=== PATIENT | female | born 1960 | race Caucasian/White ===

== ENCOUNTER → 2023-08-17 07:54 | Outpatient (REF) | payer MEDICARE, OTHER, SELFPAY ==
[2023-08-17 09:19] LABS: ALT (SGPT) 19 U/L (0-35); AST (SGOT) 29 U/L (14-36); Albumin 4.5 g/dl (3.5-5.0); Alkaline Phosphatase 95 U/L (38-126); Blood Urea Nitrogen 8 mg/dl (7-17); Calcium 9.2 mg/dl (8.4-10.2); Carbon Dioxide 19 mmol/L (22-30); Chloride 98 mmol/L (98-107); Glucose 118 mg/dl (70-99); HDL Cholesterol 58 mg/dl; LDL Cholesterol, Calculated 66 mg/dl; Potassium 4.2 mmol/L (3.5-5.1); Sodium 125 mmol/L (135-145); Total Bilirubin 0.5 mg/dl (0.2-1.3); Total Cholesterol 153 mg/dl (50-199); Total Protein 7.1 g/dl (6.3-8.2); Triglyceride 149 mg/dl (10-149); Very Low Density Lipoprotein 29 mg/dl (0-30); eGFR > 60.00
[2023-08-17 09:21] LABS: C-Reactive Protein < 5.00 mg/L (0.0-10.00)
[2023-08-17 09:55] LABS: Estradiol 28.2 pg/ml; Testosterone, Total 14.2 ng/dl
[2023-08-17 10:26] LABS: FSH 28.3 mIU/ml
[2023-08-18 21:46] LABS: DHEA Sulfate 3 ug/dL (19-205)
[2023-08-19 06:07] LABS: Quantiferon Mitogen minus NIL 4.78 IU/mL; Quantiferon NIL 0.03 IU/mL; Quantiferon TB Gold Plus Negative (Negative)
== END ==
LOC: REG 07:54
PROVIDERS: ATTENDING PHYSICIAN Internal Medicine Rheumatology; FAMILY PHYSICIAN Family Medicine; REFERRING PHYSICIAN Internal Medicine Endocrinology, Diabetes & Metabolism
DX: E11.59 Type 2 diabetes mellitus with other circulatory complications (principal); E78.2 Mixed hyperlipidemia; M81.0 Age-related osteoporosis without current pathological fracture; L68.0 Hirsutism; D83.9 Common variable immunodeficiency, unspecified; D84.9 Immunodeficiency, unspecified; L40.0 Psoriasis vulgaris; L40.50 Arthropathic psoriasis, unspecified
CPT/HCPCS: 36415; 80053; 80061; 82627; 82670; 83001; 83002; 84403; 86140; 86480

== ENCOUNTER → 2023-08-24 07:41 | Outpatient (REF) | payer MEDICARE, OTHER, SELFPAY ==
[2023-08-24 08:56] LABS: % Basophils 0.4 % (0-2); % Eosinophils 0.9 % (0-6); % Immature Granulocytes 0.2 % (0-0.5); % Lymphocytes 29.8 % (20.5-51.1); % Monocytes 11.1 % (1.7-9.3); % Neutrophils 57.6 % (42.2-75.2); Absolute Lymphocytes 1.4 10^3/uL (1.2-3.4); Absolute Monocytes 0.5 10^3/uL (0.1-0.6); Absolute Neutrophils 2.7 10^3/uL (1.4-6.5); Hematocrit 35.2 % (37.0-47.0); Hemoglobin 12.1 g/dL (12.0-16.0); Mean Corp Hgb Conc. 34.4 g/dL (33.0-37.0); Mean Corpuscular Hgb 32.4 pg (27.0-31.0); Mean Corpuscular Volume 94.1 fL (81.0-99.0); Mean Platelet Volume 9.4 fL (7.4-10.4); Nucleated Red Blood Cells % 0 %; Platelet Count 181 10^3/uL (130-400); Red Blood Cell Count 3.74 10^6/uL (4.20-5.40); Red Cell Dist. Width 11.9 % (11.5-14.5); White Blood Cell Count 4.7 10^3/uL (4.8-10.8)
[2023-08-24 10:07] LABS: Erythrocyte Sed Rate 23 mm/hour (0-20)
== END ==
LOC: REG 07:41
PROVIDERS: ATTENDING PHYSICIAN Internal Medicine Rheumatology; FAMILY PHYSICIAN Family Medicine
DX: D83.9 Common variable immunodeficiency, unspecified (principal); D84.9 Immunodeficiency, unspecified; L40.0 Psoriasis vulgaris; L40.50 Arthropathic psoriasis, unspecified; M81.0 Age-related osteoporosis without current pathological fracture
CPT/HCPCS: 36415; 85025; 85652

== ENCOUNTER → 2023-11-30 08:22 | Outpatient (REF) | payer MEDICARE, OTHER, SELFPAY ==
[2023-11-30 10:13] LABS: ALT (SGPT) 20 U/L (0-35); AST (SGOT) 35 U/L (14-36); Albumin 3.9 g/dl (3.5-5.0); Alkaline Phosphatase 81 U/L (38-126); Blood Urea Nitrogen 7 mg/dl (7-17); Calcium 8.9 mg/dl (8.4-10.2); Carbon Dioxide 23 mmol/L (22-30); Chloride 95 mmol/L (98-107); Glucose 116 mg/dl (70-99); Potassium 4.3 mmol/L (3.5-5.1); Sodium 127 mmol/L (135-145); Total Bilirubin 0.5 mg/dl (0.2-1.3); Total Protein 6.5 g/dl (6.3-8.2); eGFR > 60.00
[2023-11-30 10:14] LABS: Vitamin D, 25-OH*** 92.4 ng/mL (30-80)
[2023-11-30 10:47] LABS: Vitamin B12 266 pg/ml (239-931)
[2023-11-30 10:53] LABS: Glycohemoglobin (HgbA1c) 5.8 % (4.0-5.6)
== END ==
LOC: REG 08:22
PROVIDERS: ATTENDING PHYSICIAN Specialist; FAMILY PHYSICIAN Family Medicine; REFERRING PHYSICIAN Dermatology
DX: Z79.899 Other long term (current) drug therapy (principal); E11.59 Type 2 diabetes mellitus with other circulatory complications; E55.9 Vitamin D deficiency, unspecified; Z98.84 Bariatric surgery status; E87.1 Hypo-osmolality and hyponatremia
CPT/HCPCS: 36415; 80053; 82306; 82607; 83036

== ENCOUNTER 2024-02-03 06:40 | Day surgery (SDC) | payer MEDICARE, OTHER, SELFPAY ==
[2024-02-03] VITALS (8 sets, daily range): BP systolic 190–253; BP diastolic 91–123; BMI 33.0
[2024-02-03 08:02] LABS: Glucose - Point of Care 115 mg/dl (70-99)
== END 2024-02-03 10:25 | disposition home or self-care (01) ==
LOC: SDS 06:40
PROVIDERS: ATTENDING PHYSICIAN Internal Medicine Gastroenterology
DX: Z09 Encounter for follow-up examination after completed treatment for conditions other than malignant neoplasm (principal); Z86.010 Personal history of colon polyps; K57.30 Diverticulosis of large intestine without perforation or abscess without bleeding; K64.9 Unspecified hemorrhoids
CPT/HCPCS: 45378; 82962

== ENCOUNTER → 2024-02-22 07:55 | Outpatient (REF) | payer MEDICARE, OTHER, SELFPAY ==
[2024-02-22 08:40] LABS: % Eosinophils 1.2 % (0-6); % Immature Granulocytes 0.2 % (0-0.5); % Monocytes 9.7 % (1.7-9.3); % Neutrophils 53.9 % (42.2-75.2); Absolute Eosinophils 0.1 10^3/uL (0-0.7); Absolute Lymphocytes 1.4 10^3/uL (1.2-3.4); Absolute Monocytes 0.4 10^3/uL (0.1-0.6); Absolute Neutrophils 2.2 10^3/uL (1.4-6.5); Hematocrit 35.9 % (37.0-47.0); Hemoglobin 12.1 g/dL (12.0-16.0); Mean Corp Hgb Conc. 33.7 g/dL (33.0-37.0); Mean Corpuscular Hgb 31.4 pg (27.0-31.0); Mean Corpuscular Volume 93.2 fL (81.0-99.0); Mean Platelet Volume 9.7 fL (7.4-10.4); Nucleated Red Blood Cells % 0 %; Platelet Count 209 10^3/uL (130-400); Red Blood Cell Count 3.85 10^6/uL (4.20-5.40)
[2024-02-22 09:10] LABS: ALT (SGPT) 16 U/L (0-35); AST (SGOT) 25 U/L (14-36); Albumin 4.1 g/dl (3.5-5.0); Alkaline Phosphatase 102 U/L (38-126); Blood Urea Nitrogen 10 mg/dl (7-17); Calcium 9.2 mg/dl (8.4-10.2); Carbon Dioxide 28 mmol/L (22-30); Chloride 94 mmol/L (98-107); Glucose 113 mg/dl (70-99); Potassium 3.8 mmol/L (3.5-5.1); Sodium 136 mmol/L (135-145); Total Bilirubin 0.3 mg/dl (0.2-1.3); eGFR > 60.00
[2024-02-22 09:13] LABS: C-Reactive Protein < 5.00 mg/L (0.0-10.00)
[2024-02-22 10:29] LABS: Erythrocyte Sed Rate 42 mm/hour (0-20)
== END ==
LOC: REG 07:55
PROVIDERS: ATTENDING PHYSICIAN Internal Medicine Rheumatology; FAMILY PHYSICIAN Family Medicine
DX: L40.0 Psoriasis vulgaris (principal); L40.50 Arthropathic psoriasis, unspecified; M81.0 Age-related osteoporosis without current pathological fracture
CPT/HCPCS: 36415; 80053; 85025; 85652; 86140

== ENCOUNTER → 2024-03-18 14:03 | Outpatient (REF) | payer MEDICARE, OTHER, SELFPAY | LOC: CLAB 14:03 | PROVIDERS: ATTENDING PHYSICIAN Family Medicine | DX: J02.9 Acute pharyngitis, unspecified (principal) | CPT/HCPCS: 87070 ==

== ENCOUNTER → 2024-03-28 10:32 | Outpatient (REF) | payer MEDICARE, OTHER, SELFPAY | LOC: REG 10:32 | PROVIDERS: ATTENDING PHYSICIAN Family Medicine | DX: R05.8 Other specified cough (principal); Z20.89 Contact with and (suspected) exposure to other communicable diseases | CPT/HCPCS: 71046 ==

== ENCOUNTER 2024-04-12 19:31 | Emergency (ER) | payer MEDICARE, OTHER, SELFPAY ==
--- NOTE | 2024-04-12 19:36 | ED.GENMED ---
History of Present Illness
General
Chief Complaint: Breathing Problem
Source: ambulance crew
Exam Limitations: clinical condition
Time Seen by Provider: 04/12/24 19:34
History of Present Illness
History of Present Illness:
See MDM
Past History
Past History
ED Past Medical History: Asthma, CAD, HTN, IDDM, Other (chronic back pain) and Other (Migraines, Sinus problems)
ED Past Surgical History: Cardiac (Cardiac stents), Cholecystectomy and Other (Back surg X5, Rey knee surg, Toe surg, Bariatric surg, Lipoma removed)
Social History
Tobacco: Non-smoker
Alcohol: None
Drug: None
Personal: Single
Living: with family
Employment: Disabled
Phy Exam
Physical Exam
Physical Exam:
See MDM
Scores
Heart Failure Risk
Heart Failure Risk Score: Not Applicable
Course
Orders/Labs/Results
Orders:
Orders
04/12/24 19:34
CT Head W/o Iv Contrast Urgent
Comment:
Reason For Exam: altered and obtunded
04/12/24 19:35
Electrocardiogram (*1) Urgent
Reason for Study: Shortness of Breath
EKG- Treatment ONCE
04/12/24 19:36
CR Chest Portable - 1 View Urgent
Comment:
Reason For Exam: intubated
Reason Study Needs to be Portable: Patient Unstable
04/12/24 19:40
Acetaminophen Urgent
Alcohol Urgent
COVID-19 Antigen Urgent
Source: Nasal Swab
Complete Blood Count/With Diff Urgent
Comprehensive Metabolic Panel Urgent
Lactic Acid Q4H
Comment: CANCEL 2nd LACTIC ACID IF 1st LACTIC ACID IS LESS THAN 2
NT-proBNP Urgent
PTT Urgent
Prothrombin Time Urgent
Salicylate Urgent
Troponin I Urgent
Blood Culture Q30M
KELLI Source: Blood/Venous
Specimen Description:
Blood Culture Q30M
KELLI Source: Blood/Venous
Specimen Description:
Influenza A+B Rapid Molecular Urgent
KELLI Source: Nasal Swab
Specimen Description:
Abnormal Lab Results
04/12/24
19:40
RBC 3.83 L 10^6/uL
(4.20-5.40)
MCH 31.6 H pg
(27.0-31.0)
MCHC 32.5 L g/dL
(33.0-37.0)
Sodium 134 L mmol/L
(135-145)
Potassium 3.2 L mmol/L
(3.5-5.1)
BUN 6 L mg/dl
(7-17)
Creatinine 0.5 L mg/dL
(0.6-1.0)
Glucose 223 H mg/dl
(70-99)
Lactic Acid 2.1 H mmol/L
(0.7-2.0)
Calcium 8.0 L mg/dl
(8.4-10.2)
AST 40 H U/L
(14-36)
Troponin I 0.047 H* ng/ml
Salicylates 1.2 L mg/dl
(2.0-20.0)
04/12/24 19:40
04/12/24 19:40
Vital Signs
Initial and Last Documented VS:
Initial Vital Signs
Pulse BP Pulse Ox
80 179/96 100
04/12/24 19:39 04/12/24 19:39 04/12/24 19:39
Last Documented Vital Signs
Pulse Resp BP Pulse Ox
0 0 177/86 97
04/12/24 21:15 04/12/24 21:15 04/12/24 20:45 04/12/24 20:45
MDM/Problems Addressed
Differential Diagnosis Includes:
HPI and MDM Narrative:
63-year-old female presenting by EMS for evaluation of respiratory arrest. Per medics, her sister found her on the ground. EMS were called and there was vomit on the floor around her. Patient was unresponsive in the intubated without requiring
sedation. Patient has still not required sedation after intubation. EMS stating there was some food products in the posterior pharynx. EMS stating that sister had indicated prior history of aspiration. EMS stating that patient never lost pulses
Patient was met by myself, nursing staff and respiratory. Patient was transitioned to the ventilator immediately. Patient is unresponsive. Will obtain chest x-ray and sent to CT scanner to rule out any evidence of intracranial hemorrhage
Physical exam
General: No evidence of trauma, no respiratory drive, nonverbal and not following commands. Not responding to painful stimuli
HEENT: Not protecting airway. Pupils dilated
Neck: appears supple
CV: No evidence of cyanosis. Tachycardic
Resp: No respiratory drive. Rhonchorous breath sounds to bagging. Patient intubated by EMS
Abd: Non-distended
Extremities: No deformities
Neuro: GCS 3
Psych: Flat affect
Skin: Cool
Problems Addressed including Acute and Chronic Conditions affecting care:
1. Respiratory arrest
Acuity: acute
Prognosis: unstable
Details: Patient intubated in the field. Will obtain chest x-ray
2. Altered mental status
Acuity: acute
Prognosis: unstable
Details: Will obtain CT head and basic blood work
3. [ ]
Acuity: acute
Prognosis: stable
Details:
4. [ ]
Acuity: acute
Prognosis: stable
Details:
5. [ ]
Acuity:
Prognosis:
Details:
Updates
7:55 PM respiratory indicating that there is concern for cuff leak and patient will require reintubation
As soon as patient obtain the CT scan, radiology called immediately indicating significant amount of hemorrhage. There is hemorrhage in the ventricles and brainstem
As soon as this happened, I discussed the case with both of her sisters and I discussed that it is a nonsurvivable bleed in my medical opinion. I confirmed this with neurosurgery on-call. I discussed with family that it is in the patient's best
interest to withdraw care
8:50 PM family at bedside and patient extubated
Time of called at 9:23 PM
10:03 PM Case discussed with medical lead Veronica Peters and patient released
Differential Diagnosis (but not limited to): Aspiration pneumonia, intracranial hemorrhage, intentional overdose
Testing considered: UDS
Drug therapy (if applicable): OTC meds, please see d/c instruction regarding Rx drugs
Amount and/or Complexity of Data Reviewed
Clinical info obtained from: EMS
External data reviewed: N/A
Labs I independently reviewed (but not limited to): [ ]
Radiology: X-ray independently reviewed: Chest x-ray shows possible right upper lobe pneumonia
The CT scan was personally and independently reviewed. In addition, official CT report reviewed.
Pulse Ox: not hypoxic
EKG independently reviewed: Normal sinus rhythm, ST depression anteriorly, no STEMI
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
Critical Care: N/A
Risk of Complication:
Social Determinants of health: Good social support
Discussed with other providers: N/A
Escalation of Care includes Admit/Obs:
Occasional wrong word or 'sound a like' substitutions may have occurred due to the inherent limitations of voice recognition software. Read the chart carefully and recognize, using context, where substitutions have occurred.
*Critical Care Note
Total Time (30-74mins, 75-104mins- exclusive of procedures): Not Applicable
ED Attending Note
-
Portions of this chart may have been created with voice recognition software.� Occasional wrong word or��sound alike� substitutions may have occurred due to the inherent limitations of voice recognition software.
Discharge Plan
Departure
Patient Disposition:
Date of Disposition: 04/12/24
Time of Disposition: 21:43
Discharge Problem:
Intracranial hemorrhage, Respiratory arrest
Prescriptions:
No Action
cetirizine [Zyrtec] 5 MG tablet
5 mg PO DAILY
leflunomide 20 MG tablet
20 mg PO DAILY
aripiprazole 10 MG tablet
10 mg PO HS
ezetimibe 10 MG tablet
10 mg PO DAILY
cholecalciferol (vitamin D3) 2,000 UNIT tablet
2,000 units PO DAILY
albuterol sulfate 1 PUFF HFA aerosol inhaler
2 puff inhalation R Q4HPRN PRN (Reason: sob)
isosorbide mononitrate 60 MG tablet extended release 24 hr
60 mg PO DAILY
potassium chloride 10 MEQ tablet,ER particles/crystals
10 meq PO BID
nitroglycerin 0.4 MG tablet, sublingual
0.4 mg sublingual [id number] PRN (Reason: chest pain) 0RF
Patient Comments:
last used couple months ago
furosemide 20 MG tablet
20 mg PO DAILY 0RF
metoprolol tartrate 25 MG tablet
25 mg PO BID 0RF
aspirin 81 MG tablet,chewable
81 mg PO DAILY Qty: 30 0RF
sucralfate 1 gram Tablet
1 g PO TID
Rx Instructions:
on empty stomach
sodium chloride 1 gram Tablet
1 g PO TID
prochlorperazine maleate 10 mg Tablet
10 mg PO .BIDW/ BRKFT, DINNER
tramadol 50 mg Tablet
100 mg PO .PRN,Q8H PRN (Reason: pain)
clonazepam 2 mg Tablet
2 mg PO QID
epinephrine [EpiPen] 0.3 mg/0.3 mL Auto-Injector
0.3 mg IM PRN PRN (Reason: bee sting)
aripiprazole 2 mg Tablet
4 mg PO DAILY
Skyrizi 150 mg/mL Pen Injector
150 mg SC Q84D
High Calcium 500 MG
500 mg PO BID
Ivig
IV Q4W
Patient Comments:
does not know strength
Referrals:
UNKNOWN - PT NOT,INTERVIEWE [Family Provider] -
Interventions
Interventions:
*Risk Screen - Suicide Last Done: 04/12/24 19:47
*General Assessment Last Done: 04/12/24 19:47
*Neglect/Abuse Screening Last Done: 04/12/24 19:47
*ED COVID-19 Vaccine History Last Done: 04/12/24 19:47
*Nursing Disposition Last Done: 04/12/24 23:05
ED- Cardiac Assessment Last Done: 04/12/24 19:47
ED- Pulmonary Assessment Last Done: 04/12/24 19:47
Discharge Date and Time
Discharge Date/Time: 04/12/24 21:23
Print Language: PORTUGUESE
[2024-04-12 19:39] VITALS: BP 179/96
[2024-04-12 19:45] VITALS: BP 187/99
[2024-04-12 19:54] LABS: % Basophils 0.3 % (0-2); % Eosinophils 0.8 % (0-6); % Immature Granulocytes 0.5 % (0-0.5); % Lymphocytes 24.7 % (20.5-51.1); % Monocytes 7.8 % (1.7-9.3); % Neutrophils 65.9 % (42.2-75.2); Absolute Eosinophils 0.1 10^3/uL (0-0.7); Absolute Lymphocytes 1.6 10^3/uL (1.2-3.4); Absolute Monocytes 0.5 10^3/uL (0.1-0.6); Absolute Neutrophils 4.4 10^3/uL (1.4-6.5); Hematocrit 37.2 % (37.0-47.0); Hemoglobin 12.1 g/dL (12.0-16.0); Mean Corp Hgb Conc. 32.5 g/dL (33.0-37.0); Mean Corpuscular Hgb 31.6 pg (27.0-31.0); Mean Corpuscular Volume 97.1 fL (81.0-99.0); Mean Platelet Volume 10.1 fL (7.4-10.4); Nucleated Red Blood Cells % 0 %; Platelet Count 183 10^3/uL (130-400); Red Blood Cell Count 3.83 10^6/uL (4.20-5.40); Red Cell Dist. Width 14.1 % (11.5-14.5); White Blood Cell Count 6.6 10^3/uL (4.8-10.8)
[2024-04-12 20:00] VITALS: BP 174/84
[2024-04-12 20:01] LABS: INR 0.98; PT 13.3 Sec (11.4-14.6)
[2024-04-12 20:02] LABS: APTT 33.9 Sec (23.4-35.0)
[2024-04-12 20:05] LABS: Lactic Acid 2.1 mmol/L (0.7-2.0)
[2024-04-12 20:07] LABS: ALT (SGPT) 19 U/L (0-35); AST (SGOT) 40 U/L (14-36); Acetaminophen 17 ug/ml (10-30); Albumin 4.1 g/dl (3.5-5.0); Alkaline Phosphatase 95 U/L (38-126); Blood Urea Nitrogen 6 mg/dl (7-17); Carbon Dioxide 23 mmol/L (22-30); Chloride 98 mmol/L (98-107); Glucose 223 mg/dl (70-99); Potassium 3.2 mmol/L (3.5-5.1); Salicylate 1.2 mg/dl (2.0-20.0); Sodium 134 mmol/L (135-145); Total Bilirubin 0.3 mg/dl (0.2-1.3); Total Protein 6.7 g/dl (6.3-8.2); eGFR > 60.00
[2024-04-12 20:08] LABS: Alcohol None Detected
[2024-04-12 20:09] LABS: COVID-19 Antigen Negative (Negative)
[2024-04-12 20:15] VITALS: BP 168/85
[2024-04-12 20:20] LABS: NT-proBNP 402 pg/ml; Troponin I 0.047 ng/ml
[2024-04-12 20:30] VITALS: BP 169/86
[2024-04-12 20:45] VITALS: BP 177/86
== END 2024-04-12 21:23 | disposition expired ==
LOC: EMR 19:31
PROVIDERS: EMERGENCY PHYSICIAN Student in an Organized Health Care Education/Training Program
DX: I62.9 Nontraumatic intracranial hemorrhage, unspecified (principal); R09.2 Respiratory arrest; J45.909 Unspecified asthma, uncomplicated; I25.10 Atherosclerotic heart disease of native coronary artery without angina pectoris; I10 Essential (primary) hypertension; Z95.5 Presence of coronary angioplasty implant and graft; Z79.4 Long term (current) use of insulin; E11.9 Type 2 diabetes mellitus without complications; Z90.49 Acquired absence of other specified parts of digestive tract
CPT/HCPCS: 99285; 70450; 71045; 80053; 80143; 80179; 82077; 83605; 83880; 84484; 85025; 85610; 85730; 87040; 87502; 87811; 93005